=== PATIENT | male | born 1955 | race Caucasian/White ===

== ENCOUNTER → 2016-10-06 | Outpatient (CLI) | payer BC ==
[~2016-10-06] MED LIST: BACL10TA PO; CETI10TA10 PO; CHOL20009 PO; DULO60CA44 PO; ESOM20CA PO; ETOD400T PO; MULT-506 PO; OMEG10007 PO; TAPE50TA5 PO
[2016-10-06 10:38] LABS: BASO % 0.2 %; BASO ABS # 0.01 K/uL (0-0.2); COMPLETE YES; HEMATOCRIT 44.1 % (42-52); LYMPH % 32.5 %; LYMPH ABS # 1.63 K/uL (1.2-3.4); MEAN CELL VOLUME 90.7 fL (80-100); MEAN CORPUSCULAR HEMOGLOBIN 31.5 pg (25-34); MEAN CORPUSCULAR HGB CONC 34.7 g/dl (32-36); MEAN PLATELET VOLUME 9.3 fL (7.4-10.4); MONO % 6.4 %; NEUT % 58.9 %; PLATELET COUNT 222 K/uL (130-400); RED BLOOD COUNT 4.86 M/uL (4.7-6.1); WHITE BLOOD COUNT 5.01 K/uL (4.8-10.8)
[2016-10-06 10:57] LABS: ALT/SGPT 32 U/L (12-78); BLOOD UREA NITROGEN 16 mg/dl (7-18); BUN/CREATININE RATIO 14.7 (10-20); CARBON DIOXIDE 24 mmol/L (21-32); CHLORIDE 108 mmol/L (98-107); CHOLESTEROL 191 mg/dl (0-200); GLUCOSE 96 mg/dl (70-99); POTASSIUM 4.2 mmol/L (3.5-5.1); SODIUM 142 mmol/L (136-145); TRIGLYCERIDES 133 mg/dl (0-150); VERY LOW DENSITY LIPOPROT CALC 27 mg/dl
[2016-10-06 11:07] LABS: ALKALINE PHOSPHATASE 81 U/L (45-117); AST/SGOT 32 U/L (15-37); CHOLESTEROL/HDL RATIO 4.4; HDL CHOLESTEROL 43 mg/dl; LDL CHOLESTEROL CALCULATED 121 mg/dl
[2016-10-06 11:12] LABS: CALCIUM 8.9 mg/dl (8.5-10.1)
--- NOTE | 2016-10-10 09:45 | CODING QUERY NO DIAGNOSIS ---
TREATMENT RENDERED WITHOUT A DIAGNOSIS To promote full compliance with coding requirements relating to patient care, physician participation is requested in all cases of banking attorney uncertainty. Please assist us with providing a diagnosis/symptom for the test(s) below: A diagnosis/symptom was not documented on your Order. A valid diagnosis/symptom is required to bill all insurances. Please remember that we are unable to code a diagnosis of rule out, probable, possible, questionable, or suspected. Tests that require a diagnosis: * PSA DIAGNOSIS: Provider Signature: Date: Thank you Temi Johansen [employer] Once completed, please kindly fax back to [phone] For questions please call [phone]
== END | disposition home or self-care (01) ==
LOC: C.LAB1850 09:33
PROVIDERS: ATTEND Nurse Practitioner Adult Health
DX: Z00.00 Encounter for general adult medical examination without abnormal findings (principal); Z11.59 Encounter for screening for other viral diseases; J45.909 Unspecified asthma, uncomplicated; E78.5 Hyperlipidemia, unspecified; M79.7 Fibromyalgia

== ENCOUNTER → 2016-11-06 | Outpatient (CLI) | payer BC ==
[~2016-11-06] MED LIST changes: -MULT-506 PO
--- NOTE | 2016-11-06 15:10 | DIAGNOSTIC IMAGING REPORT ---
CHEST 2 VIEWS ROUTINE CLINICAL HISTORY: ALLERGIC RHINITIS DUE TO DUST, COUGH cough. Dyspnea. COMPARISON STUDY: 08/01/2014 FINDINGS: Old fracture right clavicle. Lungs are clear. Diaphragms are smooth. No evidence for cardiac enlargement. IMPRESSION: No acute process. Electronically signed by: Daryl Patel M.D. 11/06/2016 3:09 PM Dictated Date/Time: 11/06/2016 3:08 PM
== END | disposition home or self-care (01) ==
LOC: C.RAD1850 14:44
PROVIDERS: ATTEND Internal Medicine Pulmonary Disease
DX: J30.89 Other allergic rhinitis (principal); J45.909 Unspecified asthma, uncomplicated; R05 Cough

== ENCOUNTER → 2016-12-25 | Outpatient (CLI) | payer BC ==
[~2016-12-25] MED LIST changes: -TAPE50TA5 PO
== END | disposition home or self-care (01) ==
LOC: C.PATHSPEC 17:07
PROVIDERS: ATTEND Urology
DX: C67.9 Malignant neoplasm of bladder, unspecified (principal)

== ENCOUNTER → 2017-04-03 | Outpatient (CLI) | payer BC ==
[~2017-04-03] MED LIST changes: +MULT-506 PO
[2017-04-03 15:10] LABS: BLOOD UREA NITROGEN 18 mg/dl (7-18); CREATININE 1.16 mg/dl (0.60-1.40)
== END | disposition home or self-care (01) ==
LOC: C.LAB 13:49
PROVIDERS: ATTEND Psychiatry & Neurology Neurology
DX: Z00.00 Encounter for general adult medical examination without abnormal findings (principal)

== ENCOUNTER → 2017-04-10 | Outpatient (CLI) | payer BC ==
[~2017-04-10] MED LIST changes: +GADAVIST IV PRN
--- NOTE | 2017-04-10 17:26 | DIAGNOSTIC IMAGING REPORT ---
Brain and internal auditory canal MRI WITH AND WITHOUT CONTRAST HISTORY: H93.19 [id number] Brainstem stroke [id number] [id number]. TECHNIQUE: Multiplanar multisequence MRI of the brain and internal auditory canals were performed both before and after the intravenous administration of contrast. COMPARISON STUDY: Head CT 10/03/2010. Brain MRI 12/22/2007. FINDINGS: There are no areas of restricted diffusion to suggest acute infarction. The midline structures are intact. The paranasal sinuses are clear. The mastoid air cells are clear. The ventricles and sulci are within normal limits for age. There is no mass, hematoma, midline shift. The major vascular flow-voids at the skull base are well maintained. Postcontrast sequences show no areas of abnormal enhancement. A few scattered punctate foci of T2 hyperintensity seen within the periventricular and subcortical white matter remains unchanged. These likely represent microvascular ischemic change. No masses or abnormal enhancement within the internal auditory canals. The 7th and 8th cranial nerves are normal in course and caliber. IMPRESSION: No acute intracranial abnormality. Normal bilateral internal auditory canals. Electronically signed by: Danilo Molina M.D. 04/10/2017 5:24 PM Dictated Date/Time: 04/10/2017 5:11 PM
== END | disposition home or self-care (01) ==
LOC: C.MRI 15:24
PROVIDERS: ATTEND Psychiatry & Neurology Neurology
DX: H53.2 Diplopia (principal); H93.19 Tinnitus, unspecified ear; H91.90 Unspecified hearing loss, unspecified ear; G46.3 Brain stem stroke syndrome

== ENCOUNTER → 2017-04-29 | Outpatient (CLI) | payer OTHER ==
[~2017-04-29] MED LIST changes: +ASPI81TA28 PO; +CYAN10004 PO; -GADAVIST IV PRN; +TAPE50TA PO
--- NOTE | 2017-04-29 11:04 | DIAGNOSTIC IMAGING REPORT ---
L KNEE 3 VIEWS CLINICAL HISTORY: S89.92XA Left knee [id number] COMPARISON: None. DISCUSSION: No acute fractures or dislocations are visualized. There are tiny dorsal patellar spurs. IMPRESSION: Mild degenerative change. No acute fractures identified. Electronically signed by: Monroe Fuentes M.D. 04/29/2017 11:02 AM Dictated Date/Time: 04/29/2017 11:01 AM
--- NOTE | 2017-04-29 11:28 | DIAGNOSTIC IMAGING REPORT ---
R RIBS UNILATERAL WITH PA CHEST CLINICAL HISTORY: R07.81 Rib pain on right sideW19.XXXA Fall, [id number] trauma. Pain. COMPARISON STUDY: 06/29/2014 FINDINGS: No acute bony abnormality of the right ribs. Cortical margins are intact. Old fracture right second rib. Old fracture distal right clavicle. Chest demonstrates the lungs to be clear. No evidence pneumothorax. IMPRESSION: 1. No acute process of the chest or right ribs. 2. Findings consistent with old trauma involving several ribs as well as distal right clavicle The above report was generated using voice recognition software. It may contain grammatical, syntax or spelling errors. Electronically signed by: Daryl Patel M.D. 04/29/2017 11:27 AM Dictated Date/Time: 04/29/2017 11:25 AM
== END | disposition home or self-care (01) ==
LOC: C.LAB1850 10:41
PROVIDERS: ATTEND Nurse Practitioner Adult Health
DX: R07.81 Pleurodynia (principal); W19.XXXA Unspecified fall, initial encounter; S89.92XA Unspecified injury of left lower leg, initial encounter

== ENCOUNTER → 2017-12-07 | Outpatient (CLI) | payer OTHER ==
[~2017-12-07] MED LIST changes: -DULO60CA44 PO
== END | disposition home or self-care (01) ==
LOC: C.LAB 11:26
PROVIDERS: ATTEND Urology
DX: N40.1 Benign prostatic hyperplasia with lower urinary tract symptoms (principal)